=== PATIENT | male | born 1985 | race African-American/Black ===

== ENCOUNTER → 2017-10-23 | Outpatient (CLI) | payer OTHER | LOC: M RAD 12:25 | DX: R22.41 Localized swelling, mass and lump, right lower limb (principal); R29.898 Other symptoms and signs involving the musculoskeletal system | CPT/HCPCS: 93971 ==

== ENCOUNTER → 2018-01-18 | Outpatient (CLI) | payer OTHER | LOC: M RAD 09:45 | DX: I82.811 Embolism and thrombosis of superficial veins of right lower extremity (principal); Z98.890 Other specified postprocedural states | CPT/HCPCS: 93971 ==

== ENCOUNTER → 2018-11-09 | Outpatient (CLI) | payer OTHER ==
[~2018-11-09] MED LIST: /HYDR10T PO; ABIL10TA PO; ABIL2TAB OR; ABIL5TAB OR; CELE20TA GT; CIPR500T4 OR; CYMB1CAP5 OR; Celexa PO; DEPA500T2 OR; LAMI1TAB7 OR; LAMI1TAB7 PO; LAMI1TAB8 PO; LITH600C OR; TRAZ50TA2 PO; VICO5TAB OR; [UNRECOGNIZED DRUG - OTHER]
--- NOTE | 2018-11-09 10:08 | REP ---
Clinical: Trauma. Technique: AP, lateral, bilateral oblique views of the right hand. Findings: Old fifth metacarpal bone fracture and possible old ulnar styloid fracture noted. Soft tissue swelling identified with possible small laceration. No acute fracture dislocation. No foreign body. Impression: Old fractures. Soft-tissue swelling. No acute fracture or dislocation. Electronically Signed by Gabriel Donovan MD 11/09/2018 09:59 A
== END ==
LOC: M LRY 09:41
PROVIDERS: ATTEND Student in an Organized Health Care Education/Training Program
DX: Z87.81 Personal history of (healed) traumatic fracture (principal)